=== PATIENT | female | born 1965 | race Caucasian/White ===

== ENCOUNTER 2017-11-17 07:10 | Day surgery (SDC) | payer BC ==
[~2017-11-17] VITALS: Ht 165.1 cm; Wt 70.3 kg
[2017-11-17] MEDS ORDERED: GLYCOPYRROLATE 0.2 MG/ML VIAL ONE (07:56)
[2017-11-17] MEDS ORDERED: MEPERIDINE HCL/PF 100 MG/ML AMP ONE (07:56)
[2017-11-17] MEDS: MIDAZOLAM HCL 5 MG/5 ML VIAL ONE ×4 (07:59→08:05)
[2017-11-17 09:17] VITALS: BP_SYST 102
== END 2017-11-17 09:30 | disposition home or self-care (01) ==
LOC: EDSEX 07:10 → SDS 07:10 → SMU 07:14 → SDS 09:30
PROVIDERS: ATTEND Colon & Rectal Surgery
DX: Z12.11 Encounter for screening for malignant neoplasm of colon (principal); K57.30 Diverticulosis of large intestine without perforation or abscess without bleeding
CPT/HCPCS: 45378; J2175; J2250; J3490; J7030; 45380